=== PATIENT | male | born 1930 | race Caucasian/White ===

== ENCOUNTER 2018-04-20 01:04 | Emergency (ER) | payer MEDICARE, BC ==
[~2018-04-20] VITALS: Ht 177.8 cm; Wt 48.6 kg
[2018-04-20] MEDS ORDERED: IV NORMAL SALINE 1000ML BAG 1,000 ML IV ONE (01:45)
[2018-04-20 01:51] LABS: BASO % 0 % (0-3); EOS # 0.1 x10^3/uL (0.0-0.7); EOS % 1 % (0-3); HEMATOCRIT 35.1 % (39.0-53.0); HEMOGLOBIN 11.9 g/dL (13.0-17.5); LYMPH # 1.6 x10^3/uL (1.0-4.8); LYMPH % 14 % (24-48); MEAN CORPUSCULAR HEMOGLOBIN 31 pg (25-35); MEAN CORPUSCULAR HGB CONC 34 g/dL (31-37); MEAN CORPUSCULAR VOLUME 93 fL (79-100); MONO # 0.9 x10^3/uL (0.0-1.1); MONO % 8 % (0-9); NEUT # 8.2 x10^3uL (1.8-7.7); NEUT % 76 % (31-73); PLATELET COUNT 200 x10^3/uL (140-400); RED BLOOD COUNT 3.78 x10^6/uL (4.30-5.70); WHITE BLOOD COUNT 10.8 x10^3/uL (4.0-11.0)
[2018-04-20 02:02] LABS: CALCIUM 10.1 mg/dL (8.5-10.1); GFR 70.7; POTASSIUM 4.1 mmol/L (3.5-5.1); PROTHROMBIN TIME PATIENT 13.5 SEC (11.7-14.0)
[2018-04-20 02:08] LABS: ALBUMIN 3.6 g/dL (3.4-5.0); ALBUMIN/GLOBULIN RATIO 0.8 (1.0-1.7); TOTAL BILIRUBIN 0.5 mg/dL (0.2-1.0); TOTAL PROTEIN 8.1 g/dL (6.4-8.2)
[2018-04-20 02:38] LABS: BILIRUBIN,URINE NEGATIVE (NEG); CLARITY,URINE TURBID; COLOR,URINE YELLOW; NITRITE,URINE NEGATIVE (NEG); PH,URINE 6.5; PROTEIN,URINE 100 mg/dL (NEG-TRACE); UROBILINOGEN,URINE 0.2 mg/dL (0.2 mg/dL)
[2018-04-20 02:41] LABS: BACTERIA,URINE MANY /HPF (0-FEW); RBC,URINE OCC /HPF (0-2); WBC,URINE TNTC /HPF (0-4)
[2018-04-20 02:42] LABS: SQUAMOUS EPITHELIAL CELL,UR OCC /LPF
--- NOTE | 2018-04-20 02:52 | PHYS DOC ---
Past Medical History Past Medical History: Dementia Past Surgical History: TURP Additional Past Surgical Histo: Left inguinal hernia repair Alcohol Use: None Drug Use: None Adult General Chief Complaint Chief Complaint: DIARRHEA HPI HPI Patient is an 87 year old male who presents to the ED with abdominal distension and urinary retention. His states that this afternoon he began to complain about abdominal pain. She is unsure when he last urinated and when he last had a bowel movement. She states he did not complain of fevers, chills, cough, shortness of breath, chest pain, hematuria, or melena. She notes that has had been having generalized weakness. Patient was at [facility] for one week while the hospice nurse had some time off and just returned home yesterday. [facility] does not have any records of his bowel movements. Review of Systems Review of Systems Constitutional: Denies fever or chills Eyes: Denies change in visual acuity, redness, or eye pain HENT: Denies nasal congestion or sore throat Respiratory: Denies cough or shortness of breath Cardiovascular: Denies chest pain or heart palpitations GI: Notes abdominal pain; Denies nausea, vomiting, diarrhea, constipation : Denies dysuria or hematuria Musculoskeletal: Denies back pain or joint pain Integument: Denies rash or skin lesions Neurologic: Notes generalized weakness; Denies headache or sensory changes Complete systems were reviewed and found to be within normal limits, except as documented in this note Family History Family History Noncontributory Current Medications Current Medications Current Medications Medications (Trade) Dose Ordered Sig/Lul Start Time Stop Time Status Last Admin Dose Admin Ceftriaxone Sodium 50 ml @ 100 mls/hr 1X ONCE 04/20/18 03:00 04/20/18 03:29 Lorazepam (Ativan) 2 mg STK-MED ONCE 04/20/18 02:09 04/20/18 02:10 DC Sodium Chloride 1,000 ml @ 1,000 mls/hr 1X ONCE 04/20/18 01:45 04/20/18 02:44 DC 04/20/18 02:13 1,000 MLS/HR Allergies Allergies Allergies Coded Allergies Type Severity Reaction Last Updated Verified No Known Drug Allergies 04/20/18 No Physical Exam Physical Exam Constitutional: Patient sleeping, well developed, well nourished HENT: Normocephalic, atraumatic, oropharynx moist Eyes: Conjunctiva normal, no discharge Neck: Normal range of motion, no tenderness, supple Cardiovascular: Heart rate regular rhythm, no murmur [] Lungs & Thorax: Bilateral breath sounds clear to auscultation Abdomen: Soft, nontender Skin: Warm, dry, no erythema, no rash Back: No tenderness, no CVA tenderness. [] Extremities: No tenderness, ROM intact, no edema Neurologic: Alert and oriented X 3, normal motor function, normal sensory function, no focal deficits noted Psychologic: Affect normal, judgement normal, mood normal Current Patient Data Vital Signs Vital Signs Date Time Temp Pulse Resp B/P (MAP) Pulse Ox O2 Delivery O2 Flow Rate FiO2 04/20/18 01:15 97.8 100 20 180/88 (118) 95 Room Air 97.8 Lab Values Laboratory Tests Test 04/20/18 01:33 04/20/18 02:25 White Blood Count 10.8 x10^3/uL (4.0-11.0) Red Blood Count 3.78 x10^6/uL (4.30-5.70) L Hemoglobin 11.9 g/dL (13.0-17.5) L Hematocrit 35.1 % (39.0-53.0) L Mean Corpuscular Volume 93 fL (79-100) Mean Corpuscular Hemoglobin 31 pg (25-35) Mean Corpuscular Hemoglobin Concent 34 g/dL (31-37) Red Cell Distribution Width 15.0 % (11.5-14.5) H Platelet Count 200 x10^3/uL (140-400) Neutrophils (%) (Auto) 76 % (31-73) H Lymphocytes (%) (Auto) 14 % (24-48) L Monocytes (%) (Auto) 8 % (0-9) Eosinophils (%) (Auto) 1 % (0-3) Basophils (%) (Auto) 0 % (0-3) Neutrophils # (Auto) 8.2 x10^3uL (1.8-7.7) H Lymphocytes # (Auto) 1.6 x10^3/uL (1.0-4.8) Monocytes # (Auto) 0.9 x10^3/uL (0.0-1.1) Eosinophils # (Auto) 0.1 x10^3/uL (0.0-0.7) Basophils # (Auto) 0.0 x10^3/uL (0.0-0.2) Prothrombin Time 13.5 SEC (11.7-14.0) Prothrombin Time INR 1.1 (0.8-1.1) PTT 30 SEC (24-38) Sodium Level 140 mmol/L (136-145) Potassium Level 4.1 mmol/L (3.5-5.1) Chloride Level 102 mmol/L (98-107) Carbon Dioxide Level 29 mmol/L (21-32) Anion Gap 9 (6-14) Blood Urea Nitrogen 20 mg/dL (8-26) Creatinine 1.0 mg/dL (0.7-1.3) Estimated GFR (Cockcroft-Gault) 70.7 BUN/Creatinine Ratio 20 (6-20) Glucose Level 207 mg/dL (70-99) H Calcium Level 10.1 mg/dL (8.5-10.1) Total Bilirubin 0.5 mg/dL (0.2-1.0) Aspartate Amino Transferase (AST) 23 U/L (15-37) Alanine Aminotransferase (ALT) 30 U/L (16-63) Alkaline Phosphatase 124 U/L (46-116) H Total Protein 8.1 g/dL (6.4-8.2) Albumin 3.6 g/dL (3.4-5.0) Albumin/Globulin Ratio 0.8 (1.0-1.7) L Lipase 76 U/L (73-393) Urine Collection Type U cath Urine Color Yellow Urine Clarity Turbid Urine pH 6.5 Urine Specific Kimberly 1.015 Urine Protein 100 mg/dL (NEG-TRACE) Urine Glucose (UA) Negative mg/dL (NEG) Urine Ketones (Stick) Negative mg/dL (NEG) Urine Blood Moderate (NEG) Urine Nitrite Negative (NEG) Urine Bilirubin Negative (NEG) Urine Urobilinogen Dipstick 0.2 mg/dL (0.2 mg/dL) Urine Leukocyte Esterase Large (NEG) Urine RBC Occ /HPF (0-2) Urine WBC Tntc /HPF (0-4) Urine Squamous Epithelial Cells Occ /LPF Urine Bacteria Many /HPF (0-FEW) Laboratory Tests 04/20/18 01:33 Laboratory Tests 04/20/18 01:33 EKG EKG [] Radiology/Procedures Radiology/Procedures [] Course & Med Decision Making Course & Med Decision Making Patient is an 87 year old male with a history of dementia who presents to the ED with abdominal distension and urinary retention. Pertinent labs and imaging studies were obtained and reviewed. Urinalysis showed turbid urine with large leukocyte esterase and WBC tntc. Suspect UTI. Patient given first dose of Rocephin in the ED. Spoke with the family and discussed admission to the hospital vs. discharge. Recommended admission to the hospital, however family elected for patient to be discharged home. They were concerned that they would lose hospice care and feel that he will receive adequate follow-up care through hospice care. Patient's gant catheter was converted from down-drain to leg bag. Referral for urology was provided. Patient given prescriptions for Keflex and Flomax. Patient stable for discharge with outpatient follow-up with PCP and urologist. Discussed findings and plan with patient and family, who acknowledge understanding and agreement. Dragon Disclaimer Dragon Disclaimer This electronic medical record was generated, in whole or in part, using a voice recognition dictation system. Departure Departure Impression: Primary Impression: Urinary retention Additional Impression: Acute UTI Disposition: 01 HOME, SELF-CARE Condition: STABLE Referrals: SHARON TURCIOS MD (PCP) NELL MCGHEE MD Patient Instructions: Gant Catheter Care, Adult, Urinary Retention, Acute, Male, [id number], Urinary Tract Infection Scripts Cephalexin (KEFLEX) 500 Mg Capsule 500 MG PO TID for 7 Days, #21 CAP Prov: FADY MOON DO 04/20/18 Tamsulosin Hcl (FLOMAX) 0.4 Mg Cap.er.24h 1 CAP PO DAILY, #14 CAP 0 Refills Prov: FADY MOON DO 04/20/18 Problem Qualifiers FADY MOON DO Apr 20, 2018 02:52
[2018-04-20] MEDS ORDERED: CEPH-264 PO (03:08)
[2018-04-20] MEDS ORDERED: TAMS0.4C97 PO (03:08)
[2018-04-20 03:25] VITALS: BP 105/59
== END 2018-04-20 03:53 | disposition home or self-care (01) ==
LOC: ER 01:04
DX: N39.0 Urinary tract infection, site not specified (principal); R33.9 Retention of urine, unspecified; F03.90 Unspecified dementia, unspecified severity, without behavioral disturbance, psychotic disturbance, mood disturbance, and anxiety
CPT/HCPCS: 36415; 80053; 81001; 83690; 85025; 85610; 85730; 87086; 96365; 96375; 99284; A4314; J0690; J2060; J7030